=== PATIENT | female | born 1985 | race Caucasian/White ===

== ENCOUNTER → 2020-09-22 | Outpatient (CLI) | payer BC, OTHER | END | disposition home or self-care (01) | LOC: LABWHC1 16:36 | PROVIDERS: ATTEND Emergency Medicine | DX: Z20.822 Contact with and (suspected) exposure to COVID-19 (principal) | CPT/HCPCS: U0003; C9803; U0005 ==

== ENCOUNTER → 2024-03-29 | Outpatient (CLI) | payer BC ==
--- NOTE | 2024-03-29 15:49 | US ---
EXAMINATION TYPE: US pelvic complete DATE OF EXAM: 03/29/2024 COMPARISON: NONE CLINICAL INDICATION: Female, 38 years old with history of N92.0 EXCESSIVE MENSTRATION; Heavy menses, but regular cycle. TECHNIQUE: Transabdominal (TA). Transabdominal grayscale, color Doppler and spectral Doppler sonogr aphic images of the pelvis were acquired. FINDINGS: Date of LMP: 02/28/2024, EXAM MEASUREMENTS: Uterus: 9.1 x 5.9 x 5.2 cm Endometrial Stripe: 1.2 cm Right Ovary: 4.3 x 2.7 x 3.3 cm Left Ovary: 3.4 x 1.8 x 2.0 cm 1. Uterus: Anteverted Right fundal hypoechoic lesion - 1.1 x 0.9 x 1.0 cm 2. Endometrium: wnl for menstrual phase 3. Right Ovary: complex lesion = 3.3 x 1.7 x 2.2 cm 4. Left Ovary: follicle seen 5. Bilateral Adnexa: no free fluid 6. Posterior cul-de-sac: no free fluid Complex lesion which illustrates internal echoes within the right ovary without internal color flow. Left ovary appears unremarkable. Right fundal hypoechoic lesion within the uterus consistent with an intramural fibroid. Endometrium is within normal limits for menstrual phase. No free fluid. IMPRESSION: 1. Right ovarian complex 3.3 cm lesion favored to represent a hemorrhagic cyst. 2. Small intramural fibroid. [facility], , 03/29/2024 3:47 PM
== END | disposition home or self-care (01) ==
LOC: RADUSWWP 15:17
PROVIDERS: ATTEND Family Medicine
CPT/HCPCS: 76856